=== PATIENT | male | born 1990 | race African-American/Black ===

== ENCOUNTER 2018-02-15 05:31 | Inpatient (IN) | payer MEDICAID ==
[2018-02-15] MEDS ORDERED: Ondansetron INJ* 2 MG/ML VIAL IV ONE (05:43)
[2018-02-15] MEDS ORDERED: NS 0.9% 1000 ML* 3,000 ML IV ONE (06:00)
[2018-02-15] MEDS ORDERED: Famotidine IV* 10 MG/ML 2 ML (20 mg) IV SLOW PU ONE (06:01)
--- NOTE | 2018-02-15 06:09 | ED ---
HPI Chest Pain - HPI Summary HPI Summary: Patient is an otherwise healthy 27-year-old male with no significant PMH presenting to the ED with a 5 day history of nausea, vomiting and now reports hematemesis. He states he awoke 5 days ago with nausea and had 3-4 episodes of vomiting over the course of the next 2 days which reduced to 1-2 episodes of vomiting daily over the past 3 days, and now is reporting "small red dots" with vomiting. He endorses a taste of acid when drinking water or eating. Endorses midsternal chest burning radiating to the mouth as well as intermittent pain around the umbilicus (began 2 days after vomiting). Endorses fatigue, but denies F/W/C. Has some SOB, but only with exertion and mostly secondary d/t fatigue and not wanting to take a deep breath, per pt. Denies cardiac hx. Denies fx hx of cardiac issues. Denies sick contacts or other recent illnesses. Has not eaten anything abnormal. Denies urinary burning, urgency but endorses frequency. No hx of diabetes - father recently dx with type 2 diabetes (age 49). - History of Current Complaint Chief Complaint: EDGeneral Time Seen by Provider: 02/15/18 05:39 Hx Obtained From: Patient Onset/Duration: Started Hours Ago Timing: Constant Initial Severity: Moderate Current Severity: Moderate Pain Intensity: 0 Pain Scale Used: 0-10 Numeric Chest Pain Location: Mid Sternal - burning Chest Pain Radiates: No Character: Burning Aggravating Factor(s): Nothing Alleviating Factor(s): Nothing - Risk Factors Pulmonary Embolism Risk Factors: Negative TAD Risk Factors: Negative - Allergy/Home Medications Allergies/Adverse Reactions: Allergies Allergy/AdvReac Type Severity Reaction Status Date / Time No Known Allergies Allergy Verified 02/15/18 05:54 Home Medications: Home Medications NK [No Home Medications Reported] 02/15/18 [History Confirmed 02/15/18] PMH/Surg Hx/FS Hx/Imm Hx Previously Healthy: Yes - Immunization History Date of Tetanus Vaccine: UNSURE Date of Influenza Vaccine: NONE Hx Pertussis Vaccination: No Immunizations Up to Date: Yes Infectious Disease History: Yes Infectious Disease History: Denies: Traveled Outside the [place] in Last 30 Days - Social History Occupation: Unemployed Lives: With Family Alcohol Use: Rare Hx Substance Use: Yes Substance Use Type: Reports: Marijuana Hx Tobacco Use: No Smoking Status (MU): Never Smoked Tobacco Review of Systems - ROS Summary Review of Systems Summary: Constitutional: The patient denies fever, GAITAN, sweats or chills, but endorses fatigue. HEENT: Head: The patient denies headaches or dizziness. Throat: The patient endorses sore throat (burning.) Cardiovascular: The patient endorses chest pains described as a burning radiating to the throat. Respiratory: The patient denies cough, sputum production, hemoptysis, but endorses SOB intermittently. Gastrointestinal: The patient endorses N/V and hematemesis. Genitourinary: Denies all. Muscles: Denies myalgias. Neurologic: The patient denies headache, loss of consciousness, or seizure. Positive: Fatigue. Negative: Fever, Chills, Skin Diaphoresis Negative: Blurred Vision, Diplopia Positive: Sore Throat Positive: Chest Pain. Negative: Palpitations Positive: Shortness Of Breath. Negative: Cough Positive: Abdominal Pain, Vomiting, Nausea. Negative: Diarrhea Positive: frequency. Negative: burning, dysuria, discharge Negative: Arthralgia, Myalgia Skin: Negative All Other Systems Reviewed And Are Negative: Yes Physical Exam - Summary Physical Exam Summary: Appearance: Appears dehydrated and fatigued. No acute distress Skin: Soft dry skin, no lesions. Nailbeds pink with no cyanosis or clubbing. No petechia noted. Eyes: MEGAN, EOMI, Conjunctiva pink with no redness or exudates. Mouth: Dentition without lesions. Dry mucosa Neck: Full range of motion. Palpable thyroid. Trachea at midline. No lymphadenopathy. Pulm: Chest symmetrical expansion. No deformities on posterior chest wall. Lungs clear to auscultation and percussion, without adventitious sounds. CV: No JVD. No deformities on anterior chest wall. Heart sounds. Irregular rate. GI: Bowel sounds decreased in all 4 quadrants. No pain on deep palpation of all 4 quadrants. Negative mack's. No tenderness at mcburneys point. Musculoskeletal: Flexion and extension of neck without limitations. ROM WNL in all extremities. No deformities noted. Pulses +2 bilaterally. Neuro: Motor strength is 5/5 in upper and lower extremities bilaterally. A&OX3 Psych: Logical, coherent Triage Information Reviewed: Yes Vital Signs On Initial Exam: Initial Vitals Temp Pulse Resp BP Pulse Ox 98.1 F 140 22 129/94 99 12/14/18 05:33 02/15/18 05:33 02/15/18 05:33 02/15/18 05:33 02/15/18 05:33 Vital Signs Reviewed: Yes Appearance: Positive: Ill-Appearing - dehydrated Skin: Positive: Dry Head/Face: Positive: Normal Head/Face Inspection Eyes: Positive: EOMI, MEGAN, Conjunctiva Clear ENT: Negative: Pharyngeal erythema, Nasal congestion, Nasal drainage Neck: Positive: Supple, No Lymphadenopathy Respiratory/Lung Sounds: Positive: Clear to Auscultation, Breath Sounds Present Cardiovascular: Positive: IRR Musculoskeletal: Positive: Strength/ROM Intact Neurological: Positive: Speech Normal Psychiatric: Positive: Normal, Affect/Mood Appropriate AVPU Assessment: Alert Diagnostics - Vital Signs Vital Signs Temp Pulse Resp BP Pulse Ox 02/15/18 05:47 115 122/92 96 02/15/18 05:46 122 97 02/15/18 05:33 98.1 F 140 22 129/94 99 - Laboratory Result Diagrams: 02/15/18 06:06 02/15/18 06:06 Lab Statement: Any lab studies that have been ordered have been reviewed, and results considered in the medical decision making process. Chest Pain Course/Dx - Course Course Of Treatment: Patient is evaluated for N/V and associated CP with SOB. On arrival, EKG performed showing A-Fib. 2 lines placed wide open with NS. Appears dehydrated and fatigued but in no acute distress. Zofran and famotidine given. Labs are obtained. Glucose 442, Sodium 127, CO of 11 and an anion gap of 17. 10 units insulin given with a rate of 4 units per hour. A total of 2 L fluids bolus with a follow-up of 250 cc/hr with KCl. Venous blood gas obtained. pH 7.14. with pO2 of 22. Chest x-ray obtained. Monitor shows NSR with rate of 108 on recheck. Discussed case with Dr. Aguirre. Discussed with Dr. John at 8:15am for admission for DKA. Patient feeling improved with fluids and medications. Levaquin given for UTI. - Diagnoses Provider Diagnoses: DKA (diabetic ketoacidoses), Dehydration - Provider Notifications Discussed Care Of Patient With: Itz John - will see patient in the ED for admission Time Discussed With Above Provider: 08:15 Instructed by Provider To: Admit As Inpatient - Critical Care Time Critical Care Time: 30-74 min Discharge - Sign-Out/Discharge Documenting (check all that apply): Patient Departure - Discharge Plan Condition: Fair Disposition: ADMITTED TO [facility] Referrals: No Primary Care Phys,NOPCP [Primary Care Provider] - - Billing Disposition and Condition Condition: FAIR Disposition: Admitted to [facility]
[2018-02-15 06:17] LABS: ABS Basophils 0.1 10^3/ul (0-0.2); ABS Eosinophils 0 10^3/ul (0-0.6); ABS Lymphocytes 1.3 10^3/ul (1.0-4.8); ABS Monocytes 0.9 10^3/ul (0-0.8); ABS Neutrophils 3.2 10^3/ul (1.5-7.7); ABS Nucleated RBC 0 10^3/ul; Eosinophil % 0.6 %; Hematocrit 43 % (42-52); Hemoglobin 14.4 g/dl (14.0-18.0); Lymphocyte % 23.6 %; Mean Corpuscular HGB Conc 34 g/dl (31-36); Mean Corpuscular Hemoglobin 29 pg (27-31); Mean Corpuscular Volume 87 fL (80-94); Mean Platelet Volume 8.5 fL (7.4-10.4); Nucleated Red Blood Cells % 0.1; Platelet Count 327 10^3/ul (150-450); Red Blood Count 4.91 10^6/ul (4.00-5.40); Red Cell Distribution Width 14 % (10.5-15); White Blood Count 5.5 10^3/ul (3.5-10.8)
[2018-02-15 06:23] LABS: INR 1.01 (0.77-1.02)
[2018-02-15 06:39] LABS: Albumin 3.9 g/dL (3.2-5.2); Albumin/Globulin Ratio 0.9 (1-3); BUN/Creatinine Ratio 14.8 (8-20); EGFR Non-African American 115.2 (>60); Globulin 4.2 g/dL (2-4); Potassium 3.5 mmol/L (3.5-5.0); Total Bilirubin 0.7 mg/dL (0.2-1.0); Total Protein 8.1 g/dL (6.4-8.9)
[2018-02-15] MEDS ORDERED: Insulin REGULAR(*) 1 UNITS UNIT IV PUSH ONE (06:50)
[2018-02-15 06:59] LABS: Urine Appearance Cloudy; Urine Bacteria Absent (Absent); Urine Bilirubin Negative (Negative); Urine Blood 2+ (Negative); Urine Color Yellow; Urine Glucose 3+(>=500 mg/dL) (Negative); Urine Granular Casts Present (Absent); Urine Ketones 2+ (Negative); Urine Nitrite Negative (Negative); Urine Protein 1+(30 mg/dL) (Negative); Urine Red Blood Cell 1+(3-5/hpf) (Absent); Urine Specific Gravity 1.029 (1.010-1.030); Urine Urobilinogen Negative (Negative); Urine White Blood Cell 2+(11-20/hpf) (Absent)
[2018-02-15] MEDS ORDERED: NS 0.9% w/ 20 Meq KCL 1000 ML* 1,000 ML IV SCH (07:00)
[2018-02-15] MEDS ORDERED: Levofloxacin 500 MG IVPREMIX(* 500 MG/100 ML BAG IVPB ONE (07:00)
[2018-02-15] MEDS ORDERED: Insulin IVPB 100 units/100 ml 100 UNITS/100 ML UNIT IVPB SCH (07:30)
[2018-02-15] MEDS ORDERED: Ondansetron ODT TAB* 4 MG SL PRN (08:41)
--- NOTE | 2018-02-15 08:48 | ADMNOTE ---
Subjective Date of Service: 02/15/18 Interval History: ADMISSION HISTORY AND PHYSICAL EXAM: Allergies Allergy/AdvReac Type Severity Reaction Status Date / Time No Known Allergies Allergy Verified 02/15/18 05:54 Home Medications Medication Instructions Recorded Confirmed Type NK [No Home Medications Reported] 02/15/18 02/15/18 History HPI: Patient started having emesis 5 days ago, hematemesis 3 days ago. No pain. Polyuria and polydipsia x 5 days. No other sx's. Family History: Findings - father has DM Social History: Findings - Smokes marijuana only. No alcohol or other drug abuse. Lives with one of his 5 children and the mother. SDM is his mother. Unempoloyed Past Medical History: Findings - none Review of Systems - Measurements Intake and Output: Intake and Output Last 24 Hours 02/13/18 02/14/18 02/15/18 02/16/18 06:59 06:59 06:59 06:59 Intake Total 1999 Balance 1999 Weight 256 lb 8 oz Intake: IV Fluids 1999 - Review of Systems Constitutional Symptoms: Positive: Weight Loss - 20-25 lbs Dermatology: Positive: Normal HEENT: Positive: Normal Eyes: Positive: Other - blurry vision Thyroid: Positive: Normal Pulmonary: Positive: Normal Cardiology: Positive: Normal Gastroenterology: Positive: Nausea, Vomiting Genital - Urinary: Positive: Polyuria Genitourinary - Male: Negative: Prostatism, Erectile Dysfunction, Family Hx of Prostate Cancer, Other Musculoskeletal: Negative: Joint Pain, Joint Stiffness, Arthritis, Osteoporosis, Low Back Pain , Sciatica, Joint Deformities, Kyphoscoliosis, Other Endocrinology: Positive: Obesity Hematologic/Lymphatic: Negative: Anemia, Easy Brusing, Hx Leukemia, Hx Lymphoma, Use of Anticoagulant, Use of Antiplatelet Drugs, Other Neurology: Positive: Normal Psychiatry: Positive: Normal Allergic/Immunologic: Negative: Hx Anaphylaxis, Hx Angioedema, Hx Environmental, Hx Seasonal, Athsma, Hx HIV, Immunocompromise, Swollen Glands LymphNodes, Other Objective Active Medications: Sodium Chloride (Ns 0.9% 1000 Ml*) 3,000 mls @ 1,000 mls/hr IV .PER RATE ONE Stop: 02/15/18 08:59 Last Admin: 02/15/18 06:07 Dose: 1,000 mls/hr Insulin Human Regular (Insulin Regular Iv Drip 1 Unit/Ml) 100 units in 100 mls @ 4 mls/hr IVPB Q24H [facility]IL[facility]O Last Admin: 02/15/18 07:07 Dose: 4 mls/hr Potassium Chloride/Sodium Chloride (Ns 0.9% W/ 20 Meq Kcl 1000 Ml*) 1,000 mls @ 250 mls/hr IV PER RATE [facility] Ondansetron HCl (Zofran Odt Tab*) 4 mg SL Q6H PRN PRN Reason: NAUSEA/VOMITING Vital Signs - 8 hr 02/15/18 02/15/18 02/15/18 05:33 05:46 05:47 Temperature 98.1 F Pulse Rate 140 122 115 Respiratory 22 Rate Blood Pressure 129/94 122/92 (mmHg) O2 Sat by Pulse 99 97 96 Oximetry 02/15/18 02/15/18 02/15/18 06:00 06:17 06:47 Temperature Pulse Rate 135 111 Respiratory 20 20 Rate Blood Pressure 144/91 127/83 (mmHg) O2 Sat by Pulse 97 99 Oximetry Oxygen Devices in Use Now: None Appearance: Alert, supine on ED stretcher. Neutral affect. Looks comfortable. Eyes: No Scleral Icterus Ears/Nose/Mouth/Throat: Clear Oropharnyx, Mucous Membranes Moist Neck: NL Appearance and Movements; NL JVP, No Thyroid Enlargement, Masses Respiratory: Symmetrical Chest Expansion and Respiratory Effort, Clear to Auscultation, Clear to Percussion Cardiovascular: NL Sounds; No Murmurs; No JVD, RRR, No Edema, - Abdominal: NL Sounds; No Tenderness; No Distention, No Hepatosplenomegaly, - Extremities: No Edema, No Clubbing, Cyanosis, - Skin: No Rash or Ulcers, No Nodules or Sclerosis, - Neurological: Alert and Oriented x 3, NL Sensation Result Diagrams: 02/15/18 06:06 02/15/18 06:06 Assess/Plan/Problems-Billing Assessment: - Patient Problems (1) DKA (diabetic ketoacidoses) Current Visit: Yes Status: Acute Code(s): E13.10 - OTH DIABETES MELLITUS WITH KETOACIDOSIS WITHOUT COMA SNOMED Code(s): 996593607 Comment: New dx of DM. Insulin infusion in ICU. IV fluids with KCL. BMP 12 :30 02/15. Diabetic education. Will need PCP on discharge.
[2018-02-15 13:26] LABS: Hepatitis C Antibody Nonreactive (Nonreactive)
[2018-02-15 14:16] LABS: BUN/Creatinine Ratio 14.8 (8-20); Calcium 7.6 mg/dL (8.6-10.3); EGFR Non-African American 159.8 (>60); Potassium 3.1 mmol/L (3.5-5.0)
[2018-02-15] MEDS: KCL 10 MEQ/50 ML IVPREMIX* 10 MEQ/50 ML BAG IV SCH ×2 (15:10→16:58)
[2018-02-15] MEDS ORDERED: D5W NS 0.9% 20Meq KCL 1000 ML* 1,000 ML IV ONE (15:15)
[2018-02-15 17:41] LABS: BUN/Creatinine Ratio 14.7 (8-20); Calcium 7.8 mg/dL (8.6-10.3)
[2018-02-15] MEDS ORDERED: Dextrose 50% Syringe 50 ML* 25 GM/50 ML SYRINGE IV PUSH PRN (18:26)
[2018-02-15] MEDS ORDERED: Insulin LISPRO* 1 UNITS UNIT SUBCUT ONE (18:34)
[2018-02-15] MEDS: Insulin GLARGINE(*) 1 UNITS UNIT SUBCUT SCH (18:36)
[2018-02-15] MEDS ORDERED: KCL 20 MEQ/100 ML IVPREMIX* 20 MEQ/100 ML BAG IV ONE (18:40)
[2018-02-15] MEDS: Insulin LISPRO* 1 UNITS UNIT SUBCUT SCH (21:25)
[2018-02-16] MEDS: KCL premix 10MEQ/50 ML x 2 BAGS IV SCH ×2 (00:45→03:24)
[2018-02-16] MEDS ORDERED: KCL 10 MEQ/50 ML IVPREMIX* 10 MEQ/50 ML BAG ONE (03:15)
[2018-02-16 05:00] LABS: BUN/Creatinine Ratio 12.3 (8-20); Calcium 7.9 mg/dL (8.6-10.3); EGFR Non-African American 129.9 (>60); Potassium 3.6 mmol/L (3.5-5.0)
[2018-02-16] MEDS ORDERED: Insulin LISPRO* 1 UNITS UNIT SUBCUT ONE ×2 (05:10→22:00)
[2018-02-16] MEDS ORDERED: Dextrose 50% Syringe 50 ML* 25 GM/50 ML SYRINGE IV PUSH PRN (05:10)
[2018-02-16] MEDS ORDERED: Potassium Chlor TAB* 20 MEQ TAB.ER PO ONE (05:10)
[2018-02-16 05:30] LABS: Magnesium 1.9 mg/dL (1.9-2.7)
[2018-02-16] MEDS ORDERED: Enoxaparin(*) 100 MG/ML SYR SUBCUT SCH (06:00)
[2018-02-16 06:01] LABS: TSH (Thyroid Stimulating Horm) 1.35 mcIU/mL (0.34-5.60)
[2018-02-16] MEDS ORDERED: Metoprolol Tartrate TAB* 25 MG PO SCH (06:30)
[2018-02-16] MEDS ORDERED: NS 0.9% 1000 ML* 1,000 ML IV SCH (07:30)
[2018-02-16] MEDS ORDERED: Diltiazem IV* 5 MG/ML 5 ML VIAL (for loading dose/IV Push) (25 MG) IV SLOW PU ONE (07:31)
[2018-02-16] MEDS ORDERED: Magnesium Sulfate 1 GM IV* 1 GM/100 ML BAG IV ONE (08:00)
[2018-02-16] MEDS ORDERED: Metoprolol Tartrate TAB* 25 MG PO ONE (08:24)
--- NOTE | 2018-02-16 08:33 | PN ---
Subjective Date of Service: 02/16/18 Interval History: Pt feels much better. CP that was present after vomiting x 5 days prior to admission, resolved. Denies SOB. noted to be in a. flutter last night. It seems to have been ongoing since admission Pt is not sure if he has insurance, no PCP, visiting from [facility], for: "he'll have another baby here soon ". Had lost wt, c/o N/v for a week Family History: Findings - father has DM Social History: Findings - Smokes marijuana only. No alcohol or other drug abuse. Lives with one of his 5 children and the mother. SDM is his mother. Unempoloyed Past Medical History: Findings - none Objective Active Medications: Dextrose (D50w Syringe 50 Ml*) 12.5 gm IV PUSH .FOR FS < 60 - SS PRN PRN Reason: FS < 60 Magnesium Sulfate/Dextrose (Magnesium Sulfate 1 Gm Iv*) 1 gm in 100 mls @ 200 mls/hr IV ONCE ONE Stop: 02/16/18 08:29 Last Admin: 02/16/18 07:50 Dose: 200 mls/hr Insulin Glargine (Lantus(*)) 25 units SUBCUT Q24H [facility] Last Admin: 02/15/18 18:36 Dose: 25 units Insulin Human Lispro (Humalog*) 0 units SUBCUT ACHS [facility]; Protocol Last Admin: 02/15/18 21:25 Dose: 12 unit Metoprolol Tartrate (Lopressor Tab*) 12.5 mg PO ONCE ONE Stop: 02/16/18 08:25 Metoprolol Tartrate (Lopressor Tab*) 25 mg PO Q12HR [facility] Ondansetron HCl (Zofran Odt Tab*) 4 mg SL Q6H PRN PRN Reason: NAUSEA/VOMITING Vital Signs - 8 hr 02/16/18 02/16/18 02/16/18 01:00 02:00 03:00 Temperature Pulse Rate 94 89 Respiratory 14 25 18 Rate Blood Pressure (mmHg) O2 Sat by Pulse 98 98 Oximetry 02/16/18 02/16/18 02/16/18 04:00 05:00 06:00 Temperature 98.9 F Pulse Rate 197 Respiratory 12 17 13 Rate Blood Pressure (mmHg) O2 Sat by Pulse 98 Oximetry 02/16/18 02/16/18 02/16/18 06:11 07:00 07:33 Temperature Pulse Rate 92 Respiratory 20 13 16 Rate Blood Pressure 123/77 107/63 (mmHg) O2 Sat by Pulse 98 Oximetry 02/16/18 02/16/18 08:00 08:01 Temperature 97.6 F Pulse Rate 86 71 Respiratory 23 17 Rate Blood Pressure 126/83 (mmHg) O2 Sat by Pulse 97 98 Oximetry Oxygen Devices in Use Now: None Appearance: 27 yo M in nAD,AAOx3 Eyes: No Scleral Icterus, PERRLA Ears/Nose/Mouth/Throat: NL Teeth, Lips, Gums, Mucous Membranes Moist Neck: NL Appearance and Movements; NL JVP, Trachea Midline Respiratory: Symmetrical Chest Expansion and Respiratory Effort, Clear to Auscultation Cardiovascular: NL Sounds; No Murmurs; No JVD Abdominal: NL Sounds; No Tenderness; No Distention Lymphatic: No Cervical Adenopathy Extremities: No Edema, No Clubbing, Cyanosis Skin: No Rash or Ulcers, No Nodules or Sclerosis Neurological: Alert and Oriented x 3, NL Muscle Strength and Tone Result Diagrams: 02/15/18 06:06 02/16/18 04:37 Microbiology and Other Data: Microbiology 02/15/18 10:45 Nasal Screen MRSA (PCR) - Final Nasal Mrsa Detected Assess/Plan/Problems-Billing Assessment: 27 yo M with DKA and new dx DM. A. flutter - Patient Problems (1) DKA (diabetic ketoacidoses) Comment: New dx of DM. Insulin infusion in ICU d/c'd last night. Diabetic education/nutrition pending. Due to insurance issues will need SW consult. On Lantus and ISS with fingersticks Q4 for now. (2) Atrial flutter Comment: basically asymptomatic. Had CP with vomiting, now resolved. D/w Dr. Rose, cardiology will see pt today. Echo oirdered for tomorrow. TSH WNL Cont lopressor PO. Cont adjustment of K and Mg May bneed NOAH cardioversion on Sunday if still in A. flutter. (3) DVT prophylaxis Comment: low risk , ambulation Status and Disposition: Inpatient
[2018-02-16] MEDS: Insulin LISPRO* 1 UNITS UNIT SUBCUT SCH ×5 (09:07→22:18)
[2018-02-16] MEDS ORDERED: Digoxin IV* 0.5 MG/2 ML AMP (0.25 MG/ML) IV SLOW PU ONE (14:02)
[2018-02-16] MEDS ORDERED: Insulin GLARGINE(*) 1 UNITS UNIT SUBCUT ONE ×3 (14:48→22:00)
[2018-02-16] MEDS: Metoprolol Tartrate TAB* 25 MG PO SCH (19:07)
[2018-02-16] MEDS: Insulin GLARGINE(*) 1 UNITS UNIT SUBCUT SCH (19:07)
--- NOTE | 2018-02-16 20:23 | CONS ---
CARDIOLOGY CONSULTATION REPORT: DATE OF CONSULT: 02/16/18 REASON FOR EVALUATION: Atrial flutter. 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 He was in his usual state of health until about 5 days prior to admission where he developed nausea and vomiting. Because of those symptoms, he came to the ER and was found to be in DKA. He was admitted and treated and is feeling better. He was also noted to be in atrial flutter. He denies any palpitations. He said he usually plays basketball every once in a while and he says he has gained a lot of weight in the last year, but has not noticed any specific symptoms with exercising. He says he thinks he is a little slower perhaps because of his weight. He denies palpitations, syncope, or near syncope. While he has been here, he noted that his heart rate goes up significantly when he goes to the bathroom, uses the bedside commode in the ICU. He denies syncope, chest pain. No orthopnea. No peripheral edema. No hematemesis, no hematochezia. He said he did vomit up some blood with some of his vomiting episodes. His weight has gone from 180 pounds a year or so ago to 275 and now he is down to 250 PMH; detached retina left eye, legally blind in the left eye. He denies previous diabetes, hypertension, hyperlipidemia. PSH; Left eye surgery. ALL: nkda He denies previous diabetes, hypertension, hyperlipidemia. He denies tobacco use, but does smoke marijuana. He has rare alcohol about once a month. He drinks 2 glasses of tea a day. He is single. Family HX His mother is alive at 46 and has a murmur and probable rhythm problem. His father is alive and well at 49. He has 3 siblings, 2 sisters, and a brother, and they are alive and well. He works "odd jobs", dishwashing, and crusher jobs. He was released from assisted about a year ago. He denies recreational drugs other than marijuana and no intravenous drugs or cocaine. MEDICATIONS: no outpatient meds. As an inpatient include: 1. Insulin glargine 25 units subcu q.24. 2. Humalog on a sliding scale. 3. Metoprolol 25 mg q.12. 4. Zofran p.r.n. REVIEW OF SYSTEMS: Review of systems x12 was negative except as above. PHYSICAL EXAM: He is a well-developed, well-nourished, obese gentleman, in no apparent distress. Pulse in the 90s to 110 range, irregular; O2 sats 98% on room air; blood pressure 103/72. No significant JVD. Carotids 2+. Atraumatic , normocephalic. Extraocular muscles intact. Sclerae anicteric. Chest was clear. No CVAT. Abdomen: Bowel sounds present, nontender. No hepatosplenomegaly. Femoral pulses intact without bruits. Distal pulses intact , no edema. Motor strength 5/5 bilaterally. Deep tendon reflexes 2/4. Alert and oriented x3. Skin turgor was normal. He had multiple tattoos over his trunk and arms. DIAGNOSTIC STUDIES/LAB DATA: Labs include CBC that was normal. Labs today include sodium 132, potassium of 3.6, BUN of 9, creatinine of 0.7, glucose of 406, calcium is 7.9, magnesium of 1.9. When he came in yesterday, his potassium was as low as 3, carbon dioxide was 11. Troponin was 0. TSH was normal. Hemoglobin A1c was 11.3. Chest x-ray: No acute issues. EKG from June 2017 was normal, from 02/15/18 revealed what appeared to be atypical flutter with a rapid ventricular response of 122, no acute changes. EKG today, atrial flutter with a rate of 100, no acute changes. IMPRESSION AND PLAN: My impression is that Mr. Bobby has newly diagnosed diabetes, who presented with diabetic ketoacidosis and electrolyte abnormalities , and atrial flutter, newly recognized. The duration of the atrial flutter is uncertain. It is also uncertain whether he has developed a tachycardia-induced cardiomyopathy. For the time being, I have recommended the followin. Given his low normal blood pressures, rate control will be challenging. 2. I agree with beta camron as tolerated. 3. Would add a digoxin to try to better control his heart rate. 4. If he fails to convert with rate control, would consider NOAH-guided cardioversion in light of his risk factor of diabetes, unknown LV function, and unknown duration of the atrial flutter. 5. Would suggest an echo to assess LV function. 6. Would consider adding a statin to regimen given his diabetes. 7. Would try to maintain his potassium over 4. 8. Would advise him to refrain from caffeine. 9. Would anticoagulate him at least temporarily given the potential need for cardioversion. Further recommendations will depend on his clinical course. . [id number]/[facility] #: [id number] HANY
[2018-02-16 22:46] LABS: BUN/Creatinine Ratio 14.5 (8-20); Calcium 8.7 mg/dL (8.6-10.3); Potassium 3.4 mmol/L (3.5-5.0)
--- NOTE | 2018-02-17 00:26 | PN ---
Hospitalist Progress Note Date of Service: 02/16/18 sugar level is 450s additional lantus 5 and humalog 10 given ---> repeat f/s 12 am is 309 kcl is 3.4 supplemented with kcl 40 times one repeat f/s at 2 am ( he asked for something to eat at bedtime will give saltine cracker instead of gram crackers with peanut butter )
[2018-02-17] MEDS: Insulin LISPRO* 1 UNITS UNIT SUBCUT SCH ×6 (01:19→22:01)
[2018-02-17] MEDS: Metoprolol Tartrate TAB* 25 MG PO SCH ×2 (04:57→17:10)
[2018-02-17 06:23] LABS: ABS Basophils 0 10^3/ul (0-0.2); ABS Eosinophils 0.1 10^3/ul (0-0.6); ABS Lymphocytes 1.8 10^3/ul (1.0-4.8); ABS Monocytes 0.6 10^3/ul (0-0.8); ABS Neutrophils 1.7 10^3/ul (1.5-7.7); ABS Nucleated RBC 0 10^3/ul; Eosinophil % 2.9 %; Hematocrit 39 % (42-52); Hemoglobin 13.1 g/dl (14.0-18.0); Lymphocyte % 42.1 %; Mean Corpuscular HGB Conc 34 g/dl (31-36); Mean Corpuscular Hemoglobin 29 pg (27-31); Mean Corpuscular Volume 85 fL (80-94); Mean Platelet Volume 8.2 fL (7.4-10.4); Nucleated Red Blood Cells % 0.1; Platelet Count 267 10^3/ul (150-450); Red Blood Count 4.51 10^6/ul (4.00-5.40); Red Cell Distribution Width 14 % (10.5-15); White Blood Count 4.3 10^3/ul (3.5-10.8)
[2018-02-17 06:40] LABS: BUN/Creatinine Ratio 15.8 (8-20); Calcium 8.5 mg/dL (8.6-10.3); EGFR Non-African American 172.8 (>60); Magnesium 2.1 mg/dL (1.9-2.7)
[2018-02-17] MEDS ORDERED: Potassium Chlor TAB* 20 MEQ TAB.ER PO ONE ×3 (07:29→11:03)
[2018-02-17] MEDS: Insulin GLARGINE(*) 1 UNITS UNIT SUBCUT SCH (08:35)
[2018-02-17] MEDS: KCL 20 MEQ/100 ML IVPREMIX* 20 MEQ/100 ML BAG IV SCH ×2 (09:35→11:05)
[2018-02-17] MEDS: Rivaroxaban TAB(*) 20 MG TAB PO SCH (09:54)
[2018-02-17] MEDS ORDERED: Digoxin IV* 0.5 MG/2 ML AMP (0.25 MG/ML) IV SLOW PU ONE (11:02)
--- NOTE | 2018-02-17 11:50 | PN ---
Subjective Date of Service: 02/17/18 Interval History: Pt feels well. No c/o palpitations or SOB. Still in a. flutter according to telem monitor Family History: Findings - father has DM Social History: Findings - Smokes marijuana only. No alcohol or other drug abuse. Lives with one of his 5 children and the mother. SDM is his mother. Unempoloyed Past Medical History: Findings - none Objective Active Medications: Insulin Glargine (Lantus(*)) 40 units SUBCUT Q24H [facility]IL[facility]O Last Admin: 02/17/18 08:35 Dose: 40 units Insulin Human Lispro (Humalog*) 0 units SUBCUT Q4H [facility]IL[facility]; Protocol Last Admin: 02/17/18 08:35 Dose: 3 unit Metoprolol Tartrate (Lopressor Tab*) 25 mg PO Q12H [facility] Last Admin: 02/17/18 04:57 Dose: 25 mg Ondansetron HCl (Zofran Odt Tab*) 4 mg SL Q6H PRN PRN Reason: NAUSEA/VOMITING Rivaroxaban (Xarelto(*)) 20 mg PO DAILY [facility] Last Admin: 02/17/18 09:54 Dose: 20 mg Vital Signs - 8 hr 02/17/18 02/17/18 02/17/18 04:05 07:49 08:00 Temperature 97.8 F 97.1 F Pulse Rate 66 69 Respiratory 16 16 16 Rate Blood Pressure 115/64 95/69 (mmHg) O2 Sat by Pulse 99 99 Oximetry 02/17/18 11:25 Temperature Pulse Rate 94 Respiratory Rate Blood Pressure (mmHg) O2 Sat by Pulse Oximetry Oxygen Devices in Use Now: None Appearance: 27 yo F in nAD, aAOx3 Eyes: No Scleral Icterus, PERRLA Ears/Nose/Mouth/Throat: NL Teeth, Lips, Gums, Mucous Membranes Moist Neck: NL Appearance and Movements; NL JVP, Trachea Midline Respiratory: Symmetrical Chest Expansion and Respiratory Effort Cardiovascular: - - irregular Abdominal: NL Sounds; No Tenderness; No Distention, No Hepatosplenomegaly Lymphatic: No Cervical Adenopathy Extremities: No Edema, No Clubbing, Cyanosis Skin: No Rash or Ulcers, No Nodules or Sclerosis Neurological: Alert and Oriented x 3, NL Muscle Strength and Tone Result Diagrams: 02/17/18 06:08 02/17/18 06:08 Microbiology and Other Data: Microbiology 02/15/18 10:45 Nasal Screen MRSA (PCR) - Final Nasal Mrsa Detected Assess/Plan/Problems-Billing Assessment: 27 yo M with DKA and new dx DM. A. flutter - Patient Problems (1) DKA (diabetic ketoacidoses) Comment: New dx of DM. Diabetic education/nutrition ongoing. Due to insurance issues will need SW consult. On Lantus and ISS (2) Atrial flutter Comment: basically asymptomatic. Had CP with vomiting, now resolved. D/w Dr. Rose,Echo pending. Cont lopressor PO. Cont adjustment of K and Mg Likley willl need NOAH cardioversion on Sunday if still in A. flutter. due to planned cardioversion and unknown duration fo A. flutter Xarelto will be started (3) DVT prophylaxis Comment: low risk , ambulation Status and Disposition: Inpatient
[2018-02-17 16:20] LABS: BUN/Creatinine Ratio 14.8 (8-20); Calcium 8.8 mg/dL (8.6-10.3); EGFR Non-African American 115.2 (>60); Potassium 4.3 mmol/L (3.5-5.0)
[2018-02-18] MEDS: Metoprolol Tartrate TAB* 25 MG PO SCH ×2 (06:01→17:24)
[2018-02-18] MEDS: Rivaroxaban TAB(*) 20 MG TAB PO SCH (07:59)
[2018-02-18] MEDS: Insulin GLARGINE(*) 1 UNITS UNIT SUBCUT SCH (08:00)
[2018-02-18] MEDS: Insulin LISPRO* 1 UNITS UNIT SUBCUT SCH ×4 (08:00→21:34)
[2018-02-18 08:20] LABS: BUN/Creatinine Ratio 16.9 (8-20); Calcium 8.5 mg/dL (8.6-10.3); Magnesium 1.9 mg/dL (1.9-2.7); Potassium 3.6 mmol/L (3.5-5.0)
[2018-02-18] MEDS ORDERED: NS 0.9% 1000 ML* 1,000 ML IV SCH (12:45)
--- NOTE | 2018-02-18 13:43 | PN ---
Subjective Date of Service: 02/18/18 Interval History: Pt ix awaiting NOAH/cardioversion today. Feels well, denies CP/SOB Upset about NPO status and c/o dry mouth Family History: Findings - father has DM Social History: Findings - Smokes marijuana only. No alcohol or other drug abuse. Lives with one of his 5 children and the mother. SDM is his mother. Unempoloyed Past Medical History: Findings - none Objective Active Medications: Sodium Chloride (Ns 0.9% 1000 Ml*) 1,000 mls @ 75 mls/hr IV PER RATE [facility] Last Admin: 02/18/18 13:04 Dose: 75 mls/hr Insulin Glargine (Lantus(*)) 40 units SUBCUT Q24H [facility] Last Admin: 02/18/18 08:00 Dose: 40 units Insulin Human Lispro (Humalog*) 0 units SUBCUT ACHS [facility]; Protocol Last Admin: 02/18/18 12:27 Dose: 9 units Metoprolol Tartrate (Lopressor Tab*) 25 mg PO Q12H [facility] Last Admin: 02/18/18 06:01 Dose: Not Given Ondansetron HCl (Zofran Odt Tab*) 4 mg SL Q6H PRN PRN Reason: NAUSEA/VOMITING Rivaroxaban (Xarelto(*)) 20 mg PO DAILY [facility] Last Admin: 02/18/18 07:59 Dose: Not Given Vital Signs - 8 hr 02/18/18 02/18/18 02/18/18 07:21 07:26 11:23 Temperature 98.3 F 98.3 F Pulse Rate 81 69 Respiratory 16 16 16 Rate Blood Pressure 108/67 98/70 (mmHg) O2 Sat by Pulse 97 98 Oximetry Oxygen Devices in Use Now: None Appearance: 27 yo M in nAD, aAOx3 Eyes: No Scleral Icterus, PERRLA Ears/Nose/Mouth/Throat: NL Teeth, Lips, Gums, Mucous Membranes Moist Neck: NL Appearance and Movements; NL JVP, Trachea Midline Respiratory: Symmetrical Chest Expansion and Respiratory Effort, Clear to Auscultation Cardiovascular: NL Sounds; No Murmurs; No JVD, - - irregular Abdominal: NL Sounds; No Tenderness; No Distention Lymphatic: No Cervical Adenopathy Extremities: No Edema, No Clubbing, Cyanosis Skin: No Rash or Ulcers, No Nodules or Sclerosis Neurological: Alert and Oriented x 3, NL Muscle Strength and Tone Result Diagrams: 02/17/18 06:08 02/18/18 07:56 Microbiology and Other Data: Microbiology 02/15/18 10:45 Nasal Screen MRSA (PCR) - Final Nasal Mrsa Detected Assess/Plan/Problems-Billing Assessment: 27 yo M with DKA and new dx DM. A. flutter - Patient Problems (1) DKA (diabetic ketoacidoses) Comment: New dx of DM. Diabetic education/nutrition ongoing. Due to insurance issues SW consult ongoing. On Lantus and ISS Asked Dr. Solano to see pt in consult. Islet/insulin Abs pending (2) Atrial flutter Comment: basically asymptomatic. Had CP with vomiting, now resolved. Appreciate cardiology consult Cont lopressor PO. Cont adjustment of K and Mg ( pt had been refusing K IV) NOAH cardioversion today. cont Xarelto (3) DVT prophylaxis Comment: low risk , ambulation, Xarelto Status and Disposition: Inpatient
--- NOTE | 2018-02-18 14:30 | CONSULT ---
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 His syndrome is likely due to acute insulin-deficiency -- ie, "glucotoxicity" -- rather than autoimmune destruction of beta-cells (type 1 diabetes). To confirm this, I recommend that his disease be stratified by measures of autoantibody status and insulin secretion. IA-2 and anti-insulin antibodies are not sensitive enough to detect autoimmune diabetes. His insulin requirement is estimated to be as high as 1 unit/kg/day at the present time, but is likely to fall in the coming weeks as he recovers. I therefore recommend initiation of 4-shot basal/bolus insulin regimen at 0.6 units/kg/day, as below. It is likely that transaminitis and atrial flutter are secondary to acute metabolic disorder. I appreciate the recommendations from Dr. Rose and note that he is awaiting echo and cardioversion later today. PLAN: - check GAD65 antibody and C-peptide (add-on test to AM specimen, done) - start Humalog 12 units with meals, in addition to sliding scale - hold if glucose <80 - change Humalog sliding scale, as follows - BG 151-200 -- 2 units - BG 201-250 -- 4 units - BG 251-300 -- 6 units - BG 301-350 -- 8 units - decrease Lantus to 36 units once daily - follow-up with [facility] endocrinology in 2-3 weeks -- call [phone] for appointment SUBJECTIVE: History of Present Illness: 27 yo M in previously good health, who presented with acute nausea and vomiting on 02/15/18 and was subsequently found to have several hyperglycemia and acidosis consistent with new-onset diabetes with DKA ( ie, ketosis-prone diabetes) and atrial flutter. His A1c on presentation was 11.3 %. He received IV insulin for the first 12 hours of his admission, with rapid closure of anion gap and resolution of acidosis. He has received approximately 80 units/day of basal/bolus insulin since then with persistent hyperglycemia this admission. He has gained >100lbs in the past year since his release from skilled nursing. His minimum adult weight was 180 lbs in January 2017 and he achieved his maximum adult weight of 275lbs in December 2017, although he has lost 20lbs since then. Past Medical History: none Medications Prior to Admission: none Inpatient Medications: Sodium Chloride (Ns 0.9% 1000 Ml*) 1,000 mls @ 75 mls/hr IV PER RATE [facility] Last Admin: 02/18/18 13:04 Dose: 75 mls/hr Insulin Glargine (Lantus(*)) 40 units SUBCUT Q24H [facility] Last Admin: 02/18/18 08:00 Dose: 40 units Insulin Human Lispro (Humalog*) 0 units SUBCUT ACHS [facility]; Protocol Last Admin: 02/18/18 12:27 Dose: 9 units Metoprolol Tartrate (Lopressor Tab*) 25 mg PO Q12H [facility] Last Admin: 02/18/18 06:01 Dose: Not Given Ondansetron HCl (Zofran Odt Tab*) 4 mg SL Q6H PRN PRN Reason: NAUSEA/VOMITING Rivaroxaban (Xarelto(*)) 20 mg PO DAILY [facility] Last Admin: 02/18/18 07:59 Dose: Not Given Allergies/Intolerances: NKDA Social History: Lives with female parter, 2 children ages 3 months and 4 years. Unemployed. Denies alcohol, tobacco or drug use. Family History: No immediate family members with diabetes or autoimmune disease. Review of Systems: As above. No recent illness. No recent change in diet. OBJECTIVE: Temp Pulse Resp BP Pulse Ox 98.3 F 69 16 98/70 98 02/18/18 11:23 02/18/18 11:23 02/18/18 11:23 02/18/18 11:23 02/18/18 11:23 General: alert, pleasant, oriented, no distress ENT: neck supple, no thyromegaly, no bruit is heard Chest: CTAB, no wheezing or crackles CV: RRR, no murmur Abdomen: soft, non-tender Extremities: no edema, distal pulses intact Skin: warm, dry, no rash Neuro: grossly intact motor/sensory in extremities Psych: restricted affect, pleasant Labs: 02/18/18 12:00 - 258 - 9L 02/18/18 06:00 - 314 - 12L, 40G 02/17/18 21:00 - 327 - 12L 12/16/18 17:00 - 362 - 15L 02/17/18 12:00 - 319 - 12L 02/17/18 06:00 - 153 - 9L, 40G 02/16/18 21:00 - 450 - 12L 02/16/18 17:00 - 374 - 25G 02/16/18 12:00 - 240 - 6L 02/16/18 06:00 - 246 - 9L WBC 4.3 10^3/ul (3.5-10.8) 02/17/18 06:08 RBC 4.51 10^6/ul (4.00-5.40) 02/17/18 06:08 Hgb 13.1 g/dl (14.0-18.0) L 02/17/18 06:08 Hct 39 % (42-52) L 02/17/18 06:08 MCV 85 fL (80-94) 02/17/18 06:08 MCH 29 pg (27-31) 02/17/18 06:08 MCHC 34 g/dl (31-36) 02/17/18 06:08 RDW 14 % (10.5-15) 02/17/18 06:08 Plt Count 267 10^3/ul (150-450) 02/17/18 06:08 MPV 8.2 fL (7.4-10.4) 02/17/18 06:08 Neut % (Auto) 39.6 % 02/17/18 06:08 Lymph % (Auto) 42.1 % 02/17/18 06:08 Dickey % (Auto) 14.4 % 02/17/18 06:08 Eos % (Auto) 2.9 % 02/17/18 06:08 Baso % (Auto) 1.0 % 02/17/18 06:08 Absolute Neuts (auto) 1.7 10^3/ul (1.5-7.7) 02/17/18 06:08 Absolute Lymphs (auto) 1.8 10^3/ul (1.0-4.8) 02/17/18 06:08 Absolute Monos (auto) 0.6 10^3/ul (0-0.8) 02/17/18 06:08 Absolute Eos (auto) 0.1 10^3/ul (0-0.6) 02/17/18 06:08 Absolute Basos (auto) 0 10^3/ul (0-0.2) 02/17/18 06:08 Absolute Nucleated RBC 0 10^3/ul 02/17/18 06:08 Nucleated RBC % 0.1 02/17/18 06:08 INR (Anticoag Therapy) 1.01 (0.77-1.02) 02/15/18 06:06 VBG pH 7.14 (7.33-7.43) L 02/15/18 07:34 VBG pCO2 42 mmHg (41-51) 02/15/18 07:34 VBG pO2 22 mmHg (35-45) L 02/15/18 07:34 VBG HCO3 12.1 mmol/L (24-28) L 02/15/18 07:34 VBG O2 Saturation 41.9 % (70-80) L 02/15/18 07:34 VBG Base Excess -14.3 (0-4) L 02/15/18 07:34 Sodium 136 mmol/L (135-145) 02/18/18 07:56 Potassium 3.6 mmol/L (3.5-5.0) 02/18/18 07:56 Chloride 105 mmol/L (101-111) 02/18/18 07:56 Carbon Dioxide 24 mmol/L (22-32) 02/18/18 07:56 Anion Gap 7 mmol/L (2-11) 02/18/18 07:56 BUN 10 mg/dL (6-24) 02/18/18 07:56 Creatinine 0.59 mg/dL (0.67-1.17) L 02/18/18 07:56 Est GFR ( Amer) 200.9 (>60) 02/18/18 07:56 Est GFR (Non-Af Amer) 166.0 (>60) 02/18/18 07:56 BUN/Creatinine Ratio 16.9 (8-20) 02/18/18 07:56 Glucose 310 mg/dL (70-100) H 02/18/18 07:56 POC Glucose (mg/dL) 258 mg/dL (70-100) H 02/18/18 11:33 Glucose Meter Confirm 327 mg/dL (70-100) H 02/17/18 21:30 Hemoglobin A1c 11.3 % (4.0-5.6) H 02/15/18 06:06 Lactic Acid 0.8 mmol/L (0.5-2.0) 02/15/18 06:06 Calcium 8.5 mg/dL (8.6-10.3) L 02/18/18 07:56 Magnesium 1.9 mg/dL (1.9-2.7) 02/18/18 07:56 Total Bilirubin 0.70 mg/dL (0.2-1.0) 02/15/18 06:06 AST 177 U/L (13-39) H 02/15/18 06:06 ALT 104 U/L (7-52) H 02/15/18 06:06 Alkaline Phosphatase 79 U/L (34-104) 02/15/18 06:06 CK-MB (CK-2) 1.7 ng/mL (0.6-6.3) 02/15/18 06:06 Troponin I 0.00 ng/mL (<0.04) 02/15/18 06:06 Total Protein 8.1 g/dL (6.4-8.9) 02/15/18 06:06 Albumin 3.9 g/dL (3.2-5.2) 02/15/18 06:06 Globulin 4.2 g/dL (2-4) H 02/15/18 06:06 Albumin/Globulin Ratio 0.9 (1-3) L 02/15/18 06:06 Amylase 31 U/L (29-103) 02/15/18 06:06 Lipase 64 U/L (11.0-82.0) 02/15/18 06:06 TSH 1.35 mcIU/mL (0.34-5.60) 02/15/18 06:06 Urine Color Yellow 02/15/18 06:00 Urine Appearance Cloudy 02/15/18 06:00 Urine pH 5.0 (5-9) 02/15/18 06:00 Ur Specific [place] 1.029 (1.010-1.030) 02/15/18 06:00 Urine Protein 1+(30 mg/dl) (Negative) A 02/15/18 06:00 Urine Ketones 2+ (Negative) A 02/15/18 06:00 Urine Blood 2+ (Negative) A 02/15/18 06:00 Urine Nitrate Negative (Negative) 02/15/18 06:00 Urine Bilirubin Negative (Negative) 02/15/18 06:00 Urine Urobilinogen Negative (Negative) 02/15/18 06:00 Ur Leukocyte Esterase Trace (Negative) A 02/15/18 06:00 Urine WBC (Auto) 2+(11-20/hpf) (Absent) A 02/15/18 06:00 Urine RBC (Auto) 1+(3-5/hpf) (Absent) A 02/15/18 06:00 Ur Squamous Epith Cells Present (Absent) A 02/15/18 06:00 Urine Bacteria Absent (Absent) 02/15/18 06:00 Hyaline Casts Present (Absent) A 02/15/18 06:00 Granular Casts Present (Absent) A 02/15/18 06:00 Urine Glucose 3+(>=500 mg/dl) (Negative) A 02/15/18 06:00 Hepatitis C Antibody Nonreactive (Nonreactive) 02/15/18 06:06 Hepatitis C Ab Index < 0.0 Index 02/15/18 06:06 HIV 1&2 Antibody Nonreactive (Nonreactive) 02/15/18 06:06
[2018-02-18] MEDS ORDERED: Naloxone* 0.4 MG/ML 1 ML VIAL ONE (14:49)
[2018-02-18] MEDS ORDERED: Flumazenil* 0.1 MG/ML 5 ML MDV ONE (14:49)
[2018-02-18] MEDS ORDERED: fentaNYL* 50 MCG/ML 2 ML VIAL (100 MCG VIAL) ONE (14:49)
[2018-02-18] MEDS ORDERED: Midazolam* 1 MG/ML 10 ML VIAL (10 MG) ONE (14:49)
[2018-02-18] MEDS ORDERED: Lidocaine 2% VISCOUS* 15 ML UDC ONE (14:49)
--- NOTE | 2018-02-18 16:16 | TEE ---
Patient: GREG REYES [facility] Rec#: [id number] : 1990 Date: 02/18/2018 Age: 27y Height: 185 cm / 72.8 in Weight: 117 kg / 257.9 lbs Sex: M BSA: 2.39 Room#: [facility] Admit Date#: 02/15/2018 Type: Inpatient Referring: Rosalina Contreras MD Performing: Earl Mahoney MD Reading: Earl Mahoney MD Steward/Stewardess Second Class: Gertrude Evangelista RD,RDMS Nurse: Kera Muñoz RN Transesophageal Echocardiogram Indication: AFLUTTER BP: 106/61 HR: 140 Rhythm: A-Flutter Findings History: DM, DKA Technical Comments: The study quality is good. Left Ventricle: The left ventricular chamber size is normal. Mild global hypokinesis of the left ventricle is observed. There is mildly decreased left ventricular systolic function. The estimated ejection fraction is 45-50%. The assessment of diastolic function is non-diagnostic. Left Atrium: The left atrial chamber size is normal. There is no thrombus visualized in the left atrial appendage. Right Ventricle: The right ventricular chamber size and systolic function are within normal limits. Right Atrium: The right atrial cavity size is normal. A patent foramen ovale is demonstrated by agitated contrast. Aortic Valve: The aortic valve is trileaflet. There is no evidence of aortic valve thickening. Systolic excursion of the aortic valve is normal. There is no evidence of aortic regurgitation. There is no evidence of aortic stenosis. Mitral Valve: The mitral valve leaflets appear normal. There is a trace of mitral regurgitation. There is no evidence of mitral stenosis. Tricuspid Valve: The tricuspid valve leaflets are normal. There is trace tricuspid regurgitation. Pulmonic Valve: The pulmonic valve appears normal. There is a trace pulmonic regurgitation. Pericardium: There is no significant pericardial effusion. Aorta: The aortic root appears normal. Pulmonary Artery: The main pulmonary artery appears normal. Venous: The inferior vena cava appears normal. The pulmonary veins appear normal. The superior vena cava appears normal. NOAH Procedures: All standard views were attempted within the limitations of patient tolerance and safety. History and physical as well as labs were reviewed. The patient was in a fasting state. Risks and benefits of the procedure, including alternatives, were discussed and written informed consent was obtained. The patient and/or their health care patient accounting representative expressed understanding of the procedure, risks and benefits. Baseline and continuous monitoring of blood pressure, heart rate, pulse oximetry and heart rhythm was performed throughout the procedure. The appropriate time-out procedure was performed as per [facility] protocol. The patient was placed in the left lateral decubitus position. The patient's posterior pharynx was anesthetized with 20ml of 2% viscous lidocaine. The patient received IV Midazolam with a total dose of 6 mg. The patient received IV Fentanyl with a total dose of 50 mcg. An oral bite block was inserted for protection of oral dentition. The multiplane transesophageal echocardiogram probe was inserted through the posterior oropharynx and advanced into the esophagus without difficulty. Multiple 2D images were obtained of the heart and its related structures. Color flow Doppler was used for evaluation. Spectral Doppler was also used. The atrial septum was interrogated with color flow Doppler. At the conclusion of the procedure the probe was removed with continuous suction without complications. The patient tolerated the procedure with no apparent complications. Contrast: Intravenous agitated saline contrast was used to assess intracardiac shunting. Conclusions Mild global hypokinesis of the left ventricle is observed. There is mildly decreased left ventricular systolic function. The estimated ejection fraction is 45-50%. There is no thrombus visualized in the left atrial appendage. A patent foramen ovale is demonstrated by agitated contrast. There is no evidence of aortic stenosis. There is a trace of mitral regurgitation. There is trace tricuspid regurgitation. There is no significant pericardial effusion. Measurements Name Value Normal Range Aortic Annulus 2.6 cm (1.4 - 2.6) Ao root diameter (2D) 3.4 cm (2.1 - 3.5) Ascending Ao 2.6 cm (2.1 - 3.4) Name Value Normal Range MV E-wave Vmax 0.7 m/sec - MV deceleration time 50 msec - Name Value Normal Range AV Vmax 0.9 m/sec - AV peak gradient 3 mmHg -
--- NOTE | 2018-02-18 20:36 | CARD ---
CC: Dr. Rose * CARDIOVERSION REPORT: DATE OF PROCEDURE: 02/18/18 - ROOM #451 PROCEDURE: Cardioversion. INDICATION: Atrial flutter. The patient is a 27-year-old gentleman, who is admitted to the hospital with a new diagnosis of diabetes. He was found to be in atrial flutter. The patient has just undergone a transesophageal echocardiogram demonstrating mildly reduced LV systolic function. No significant valvular abnormalities. No evidence of thrombus in the left atrial appendage. Cardioversion was recommended. DESCRIPTION OF PROCEDURE: The patient was given additional 2 mg of Versed for conscious sedation. The patient was cardioverted with 100 joules of synchronized biphasic energy. The patient converted to normal sinus rhythm. The patient tolerated procedure well with no complications. The patient will be discharged on Xarelto and low-dose beta blockers. The patient will follow up with Dr. Rose. [id number]/[facility] #: [id number] MTDD
[2018-02-18] MEDS ORDERED: Insulin LISPRO* 1 UNITS UNIT SUBCUT ONE (21:31)
[2018-02-19] MEDS: Metoprolol Tartrate TAB* 25 MG PO SCH ×2 (05:27→18:01)
[2018-02-19] MEDS: Insulin LISPRO* 1 UNITS UNIT SUBCUT SCH ×7 (08:41→21:59)
[2018-02-19] MEDS: Insulin GLARGINE(*) 1 UNITS UNIT SUBCUT SCH (08:41)
[2018-02-19] MEDS: Rivaroxaban TAB(*) 20 MG TAB PO SCH (08:41)
[2018-02-19] MEDS ORDERED: Dextrose 50% Syringe 50 ML* 25 GM/50 ML SYRINGE IV PUSH PRN ×2 (09:12→20:54)
--- NOTE | 2018-02-19 14:41 | PN ---
Subjective Date of Service: 02/19/18 Interval History: Pt feels well, no new complaints. able to inject his insulin himself Family History: Findings - father has DM Social History: Findings - Smokes marijuana only. No alcohol or other drug abuse. Lives with one of his 5 children and the mother. SDM is his mother. Unempoloyed Past Medical History: Findings - none Objective Active Medications: Dextrose (D50w Syringe 50 Ml*) 12.5 gm IV PUSH .FOR FS < 60 - SS PRN PRN Reason: FS < 60 Insulin Glargine (Lantus(*)) 40 units SUBCUT Q24H [facility] Last Admin: 02/19/18 08:41 Dose: 40 units Insulin Human Lispro (Humalog*) 12 units SUBCUT AC [facility] Last Admin: 02/19/18 12:35 Dose: 12 units Insulin Human Lispro (Humalog*) 0 units SUBCUT ACHS [facility]; Protocol Last Admin: 02/19/18 12:36 Dose: 8 units Metoprolol Tartrate (Lopressor Tab*) 25 mg PO Q12H [facility] Last Admin: 02/19/18 05:27 Dose: 25 mg Ondansetron HCl (Zofran Odt Tab*) 4 mg SL Q6H PRN PRN Reason: NAUSEA/VOMITING Rivaroxaban (Xarelto(*)) 20 mg PO DAILY [facility] Last Admin: 02/19/18 08:41 Dose: 20 mg Vital Signs - 8 hr 02/19/18 02/19/18 07:25 08:00 Temperature 97.8 F Pulse Rate 72 Respiratory 14 16 Rate Blood Pressure 110/66 (mmHg) O2 Sat by Pulse 97 Oximetry Oxygen Devices in Use Now: None Appearance: 27 yo m in nAD, aAOx3 Eyes: No Scleral Icterus, PERRLA Ears/Nose/Mouth/Throat: NL Teeth, Lips, Gums, Mucous Membranes Moist Neck: NL Appearance and Movements; NL JVP, Trachea Midline Respiratory: Symmetrical Chest Expansion and Respiratory Effort, Clear to Auscultation Cardiovascular: NL Sounds; No Murmurs; No JVD, RRR Abdominal: NL Sounds; No Tenderness; No Distention Lymphatic: No Cervical Adenopathy Extremities: No Edema, No Clubbing, Cyanosis Skin: No Rash or Ulcers, No Nodules or Sclerosis Neurological: Alert and Oriented x 3, NL Muscle Strength and Tone Result Diagrams: 02/17/18 06:08 02/18/18 07:56 Microbiology and Other Data: Microbiology 02/15/18 10:45 Nasal Screen MRSA (PCR) - Final Nasal Mrsa Detected Assess/Plan/Problems-Billing Assessment: 27 yo M with DKA and new dx DM. A. flutter - Patient Problems (1) DKA (diabetic ketoacidoses) Comment: New dx of DM. Diabetic education/nutrition ongoing. Due to insurance issues SW consult ongoing. sugars still uncontrolled in the past 24H , but pt had been NPO most of the day yesterday appreciate Dr. Solano's recommendations, autiommune work/up and C peptide levels pending. Pt is to be on Lantus 40 U and Lispro 12 U TID (2) Atrial flutter Comment: basically asymptomatic. Appreciate cardiology consult. S/p succesful cardioversion onn 02/18/18, remains in NSR Cont lopressor PO. Cont adjustment of K and Mg ( pt had been refusing K IV) cont Xarelto (3) Transaminitis Comment: Pt has h/o Hepatitis C(treated), may be chronic, or due to hypoperfusion when in DKA, will recheck LFT's in AM (4) DVT prophylaxis Comment: low risk , ambulation, Xarelto Status and Disposition: Inpatient
[2018-02-19] MEDS ORDERED: Insulin LISPRO* 1 UNITS UNIT SUBCUT ONE (20:54)
[2018-02-20] MEDS ORDERED: Insulin LISPRO* 1 UNITS UNIT SUBCUT ONE (02:44)
[2018-02-20] MEDS ORDERED: Dextrose 50% Syringe 50 ML* 25 GM/50 ML SYRINGE IV PUSH PRN (02:44)
[2018-02-20] MEDS: Metoprolol Tartrate TAB* 25 MG PO SCH (05:25)
[2018-02-20 06:53] LABS: Hematocrit 35 % (42-52); Mean Corpuscular HGB Conc 35 g/dl (31-36); Mean Corpuscular Hemoglobin 30 pg (27-31); Mean Corpuscular Volume 86 fL (80-94); Mean Platelet Volume 8.5 fL (7.4-10.4); Platelet Count 236 10^3/ul (150-450); Red Blood Count 4.02 10^6/ul (4.00-5.40); Red Cell Distribution Width 14 % (10.5-15); White Blood Count 3.8 10^3/ul (3.5-10.8)
[2018-02-20 07:29] LABS: BUN/Creatinine Ratio 16.7 (8-20); Calcium 8.6 mg/dL (8.6-10.3); EGFR Non-African American 162.9 (>60); Potassium 3.3 mmol/L (3.5-5.0); Total Bilirubin 0.3 mg/dL (0.2-1.0)
[2018-02-20] MEDS: Rivaroxaban TAB(*) 20 MG TAB PO SCH (08:46)
[2018-02-20] MEDS: Insulin GLARGINE(*) 1 UNITS UNIT SUBCUT SCH (08:46)
[2018-02-20] MEDS: Insulin LISPRO* 1 UNITS UNIT SUBCUT SCH ×4 (08:47→12:07)
[2018-02-20] MEDS ORDERED: Potassium Chlor TAB* 20 MEQ TAB.ER PO ONE (08:59)
[2018-02-20 12:17] VITALS: BP 118/56
--- NOTE | 2018-02-20 12:48 | DS ---
ADDENDUM TO DISCHARGE SUMMARY DATE OF ADMISSION: 02/15/2018. DATE OF DISCHARGE: 02/20/2018. MEDICATIONS: 1. Insulin Glargine 40 units subcutaneously daily. 2. Insulin Lispro 12 units with each meal 3 times a day. 3. Metoprolol Tartrate 25 mg b.i.d. 4. Xarelto 20 mg daily. [id number]/[facility] #: [id number] [facility]
--- NOTE | 2018-02-20 22:24 | DS ---
ADDENDUM NOW INCLUDED ON THIS REPORT CC: Dr. Mark Solano; Dr. Rose; Dr. Mahoney; Dr. Audrey Bustillos, [facility] * DISCHARGE SUMMARY: DATE OF ADMISSION: 02/15/18 DATE OF DISCHARGE: 02/20/18 PRIMARY CARE PROVIDER: None prior to admission. The patient is going to be set up with [facility] on discharge. DISCHARGE DIAGNOSES: 1. Diabetic ketoacidosis. 2. New diagnosis of diabetes. It had not been distinguished yet whether it is diabetes type 1 or 2 and the investigation and laboratory values are pending to determinate it further. 3. Atrial flutter with rapid ventricular response, status post cardioversion and NOAH on 02/18/[address] Mahoney. PAST MEDICAL HISTORY: History of hepatitis C, treated in the past. CONSULTATIONS DURING THE HOSPITAL STAY: Included Dr. Mark Solano from Endocrinology, Dr. Rose and Dr. Mahoney from Cardiology. LABORATORY DATA OBTAINED THROUGHOUT THE HOSPITAL STAY: Included: On 02/20/18: White blood cell count of 3.8, hemoglobin of 12.0, hematocrit of 35, and platelets of 236. Sodium 137, potassium 3.3, chloride 103, carbon dioxide 27, BUN 10, creatinine 0.6. Liver function tests were mildly abnormal with an AST of 135, ALT of 88, bilirubin 0.3, and alkaline phosphatase 53. The patient's ABG at admission showed pH of 7.14, pCO2 of 42, pO2 of 22, bicarb of 12. Serology showed positive for hepatitis C antibody and negative for HIV. Transesophageal echocardiogram obtained on 02/18/18 showed EF of 45% to 50%, with trace tricuspid regurgitation and trace pulmonary regurgitation and mild global hypokinesis of the left ventricle with no thrombus visualized. There was a patent foramen ovale demonstrated by agitated contrast. HOSPITALIZATION COURSE: Kanu Sandhu is a 27-year-old male who presented to the hospital on 02/15/18 with a history of nausea, vomiting, and chest pain. 1. He was markedly tachycardic and initially it was started with sinus tachycardia. He was admitted to the intensive care unit for insulin drip. His initial sugar was noticed to be 309. The patient had mild transaminitis at admission and his hemoglobin A1c was 11.3. Later on, when he was adequately resuscitated, it was noted the patient is in fact in A-flutter. He was set on anticoagulation with Xarelto and on rate-controlling agents including beta- blockers. It was still noted that the patient continued to be in atrial flutter despite adequate resuscitation and electrolyte replacement. The patient was seen by Cardiology in consultation, and he was cardioverted to sinus rhythm on 02/18/[address] Mahoney. It was recommended to continue on beta- blockers as well as Xarelto and follow up with Cardiology. Due to his EF being 45% to 50%, it was also recommended for the patient to be on a low-dose ROBBIN inhibitor. Unfortunately, the patient's pressures had been in the low 100s to high 90s systolically, and he would not tolerate an ROBBIN inhibitor at this point on discharge. 2. The patient was noted to be in new onset diabetes. The patient stated that he gained approximately 100 pounds in the past 1 year. At this point, further investigations to determinate whether it is type 1 or type 2 diabetes and those include C-peptide, anti-HO antibody, islet antigen antibody, and insulin antibodies are pending at the time of dictation. The patient continued to be covered with insulin and started on insulin Lantus and insulin Lispro 3 times a day with meals as per Dr. Solano's recommendations from Endocrinology. By the time of discharge, the patient's sugar level had been steadily in the 200s range. He was educated about the diabetic diet and use of pens as well as glucometer. He had issues with no insurance at admission, which was resolved and the patient has Medicaid insurance by the time of discharge. He is recommended to follow up with [facility] next week and [facility] will call him with a scheduled appointment. The patient is also asked to follow up with Dr. Solano and Dr. Rose and call those offices for an appointment. The patient's transaminitis on the day of discharge was still present and mild, likely related to a history of hepatitis C. PHYSICAL EXAM AT DISCHARGE: Blood pressure of 119/73, heart rate of 64 and regular, respiratory rate 16, oxygen saturation 100% on room air, and temperature 98.2. General: The patient is a pleasant 27-year-old male who is in no acute distress. Alert, awake, and oriented x3. HEENT: Head atraumatic and normocephalic. Eyes: Pupils equal and reactive to light and accommodation. Oropharynx clear. Mucosa moist. Neck: Supple. No JVD, no bruits bilaterally. Cardiovascular: Regular, rate, and rhythm. No murmur. Respiratory: Clear to auscultation bilaterally. Abdomen: Soft and nontender. Bowel sounds present in all 4 quadrants. Extremities: There is no edema. Pulses +2 bilaterally. No clubbing or cyanosis. Neuro Evaluation: Grossly nonfocal. Cranial nerves II through XII grossly intact. Motor strength is 5/5 bilaterally. Please note that this is a short summary of the patient's hospital stay. Please refer to further medical records for details. TIME SPENT: Approximately 45 minutes were spent in preparation of the patient' s discharge. ADDENDUM: MEDICATIONS: 1. Insulin Glargine 40 units subcutaneously daily. 2. Insulin Lispro 12 units with each meal 3 times a day. 3. Metoprolol Tartrate 25 mg b.i.d. 4. Xarelto 20 mg daily. [id number]/CPS #: [id number]/CPS #: [id number] [facility]
== END 2018-02-20 12:30 | disposition home or self-care (01) | DRG 420 ==
LOC: ED 05:31 → ICU 08:15 → MEDTELE 02-16 17:49
PROVIDERS: ADMIT Internal Medicine; ATTEND Internal Medicine
PROC: 5A2204Z Restoration of Cardiac Rhythm, Single (ICD-10-PCS; 2018-02-18)
PROC: B24BZZ4 Ultrasonography of Heart with Aorta, Transesophageal (ICD-10-PCS; principal; 2018-02-18 14:30)
DX: E11.10 Type 2 diabetes mellitus with ketoacidosis without coma (principal); I48.92 Unspecified atrial flutter; H33.22 Serous retinal detachment, left eye; Q21.1 Atrial septal defect; E86.0 Dehydration; H54.62 Unqualified visual loss, left eye, normal vision right eye; F12.90 Cannabis use, unspecified, uncomplicated; E66.9 Obesity, unspecified; I27.20 Pulmonary hypertension, unspecified; B19.20 Unspecified viral hepatitis C without hepatic coma; I07.1 Rheumatic tricuspid insufficiency; Z79.4 Long term (current) use of insulin; Z83.3 Family history of diabetes mellitus; Z56.0 Unemployment, unspecified; Z68.34 Body mass index [BMI] 34.0-34.9, adult; Z79.01 Long term (current) use of anticoagulants
CPT/HCPCS: 36415; 71046; 80048; 80053; 81003; 81015; 82150; 82553; 82803; 82947; 83036; 83605; 83690; 83735; 84443; 84484; 84681; 85025; 85027; 85610; 86337; 86341; 86703; 86803; 87086; 87641; 92960; 93005; 93312; 93325; 99156; 99157; 99284; A9270-GY; J1160; J1815; J1956; J2250; J2310; J2405; J3010; J3475; J3480

== ENCOUNTER 2019-01-12 15:21 | Emergency (ER) | payer SELFPAY ==
[2019-01-12] MEDS ORDERED: Fluconazole 150 MG TAB PO ONE (16:16)
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
[2019-01-12] MEDS ORDERED: traMADol TAB* 50 MG PO ONE (16:32)
[2019-01-12 16:42] VITALS: BP 144/84
== END 2019-01-12 16:41 | disposition home or self-care (01) ==
LOC: ED 15:21
DX: N47.6 Balanoposthitis (principal); E11.9 Type 2 diabetes mellitus without complications
CPT/HCPCS: 99282; A9270-GY

== ENCOUNTER 2019-03-03 02:51 | Emergency (ER) | payer SELFPAY ==
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
[2019-03-03] MEDS ORDERED: oxyCODONE/Acetamin 5/325 MG* TAB PO ONE (03:41)
[2019-03-03 04:41] VITALS: BP 154/67
== END 2019-03-03 04:28 | disposition home or self-care (01) ==
LOC: ED 02:51
DX: S01.412A Laceration without foreign body of left cheek and temporomandibular area, initial encounter (principal); X99.1XXA Assault by knife, initial encounter; Y92.9 Unspecified place or not applicable; E11.9 Type 2 diabetes mellitus without complications
CPT/HCPCS: 12015; 99282; A9270-GY